=== PATIENT | male | born 1960 | race Caucasian/White ===

== ENCOUNTER 2017-06-02 08:35 | Emergency (ER) | payer OTHER ==
[2017-06-02 08:40] VITALS: BP 138/77; PULSE 70; TEMP 98.8
[2017-06-02 09:00] VITALS: RESP 18
--- NOTE | 2017-06-02 09:06 | ED ---
General Adult HPI - General Chief complaint: Upper Respiratory Infection Stated complaint: body aches, cough Time Seen by Provider: 06/02/17 08:51 Source: patient, RN notes reviewed Mode of arrival: ambulatory Limitations: no limitations - History of Present Illness Initial comments: Patient 56-year-old male presenting to the emergency room today with a chief complaint of cough congestion over the last 2 weeks. Patient states that he's had positive sputum production as been yellow in color. Patient does admit to bodyaches, fevers, chills. Patient states is not taking any medication for this. States does not seem to be getting any better. He does admit to being a daily smoker. Patient denies any recent shortness of breath, chest pain, back pain, abdominal pain, nausea or vomiting, numbness or tingling, headaches or visual changes, or any other complaints. - Related Data Previous Rx's Medication Instructions Recorded Hydrocodone/Acetaminophen [[place] 1 tab PO Q6HR PRN #15 tab 10/29/15 5-325] Eiac-Uqhg-Ymp 6.25-5-10Mg/5Ml 5 ml PO Q4-6H #150 ml 06/02/17 [Phenergan VC with Codeine] Allergies Allergy/AdvReac Type Severity Reaction Status Date / Time No Known Allergies Allergy Verified 06/02/17 08:40 Review of Systems ROS Statement: Those systems with pertinent positive or pertinent negative responses have been documented in the HPI. ROS Other: All systems not noted in ROS Statement are negative. Past Medical History Past Medical History: No Reported History History of Any Multi-Drug Resistant Organisms: None Reported Past Surgical History: No Surgical Hx Reported Past Psychological History: No Psychological Hx Reported Smoking Status: Current every day smoker Past Alcohol Use History: None Reported Past Drug Use History: None Reported General Exam - General Exam Comments Initial Comments: General: The patient is awake and alert, in no distress, and does not appear acutely ill. Eye: Pupils are equal, round and reactive to light, extra-ocular movements are intact. No nystagmus. There is normal conjunctiva bilaterally. No signs of icterus. Ears, nose, mouth and throat: There are moist mucous membranes and no oral lesions. Neck: The neck is supple, there is no tenderness or JVD. Cardiovascular: There is a regular rate and rhythm. No murmur, rub or gallop is appreciated. Respiratory: Lungs are clear to auscultation, respirations are non-labored, breath sounds are equal. No wheezes, stridor, rales, or rhonchi. Musculoskeletal: Normal ROM, no tenderness. Strength 5/5. Sensation intact. Pulses equal bilaterally 2+. Neurological: A&O x 3. CN II-XII intact, There are no obvious motor or sensory deficits. Coordination appears grossly intact. Speech is normal. Skin: Skin is warm and dry and no rashes or lesions are noted. Psychiatric: Cooperative, appropriate mood & affect, normal judgment. Limitations: no limitations Course Vital Signs 06/02/17 06/02/17 08:38 08:59 Temperature 98.8 F Pulse Rate 70 Respiratory 20 18 Rate Blood Pressure 138/77 O2 Sat by Pulse 98 Oximetry Medical Decision Making - Medical Decision Making Patient reexamined at this time shows no signs of distress. Patient's vitals are stable. Patient's influenza be positive. Chest x-ray shows no evidence of pneumonia. They believe they're advised to areas that are consistent with nipple shadowing. This was discussed with the patient is advised to follow up his family physician for repeat x-ray. Patient is outside the window for treatment of Tamiflu at this time. He is requesting something for his cough and body aches stating that he is having a hard time sleeping at night. Patient will be given a prescription for Phenergan and codeine and advised that it may make him drowsy. Patient is advised used Tylenol Motrin for body aches fevers. Otherwise follow-up with his family physician return if symptoms increase worsen or he states her stated and is in agreement. - Lab Data Lab Results 06/02/17 Range/Units 08:50 Influenza Type A RNA Not Detected (Not Detectd) Influenza Type B (PCR) Detected H (Not Detectd) Disposition Clinical Impression: Influenza B Disposition: HOME SELF-CARE Condition: Good Instructions: Influenza (ED) Additional Instructions: Please use medication as discussed. Please follow-up with family doctor in the next 2 days of symptoms have not improved. Please return to emergency room if the symptoms increase or worsen or for any other concerns. Prescriptions: Sxvb-Pjnv-Kkh 6.25-5-10Mg/5Ml [Phenergan VC with Codeine] 5 ml PO Q4-6H #150 ml Referrals: None,Stated [Primary Care Provider] - 1-2 days Bazo,Charbal B, MD [REFERRING] - 1-2 days Keyon Knott DO [STAFF PHYSICIAN] - 1-2 days Time of Disposition: 09:32
--- NOTE | 2017-06-02 09:13 | XR ---
EXAMINATION TYPE: XR chest 2V DATE OF EXAM: 06/02/2017 HISTORY: cough. REFERENCE: NONE. FINDINGS: There are nodular opacities projecting over the mid chest bilaterally. These may represent nipple shadows. This could BE confirmed with repeat examination with nipple markers. The lungs are ot herwise clear. Pleural space are clear. The heart is not enlarged. IMPRESSION: 1. NO ACUTE INTRATHORACIC ABNORMALITY. 2. PROBABLE NIPPLE SHADOWS.
== END 2017-06-02 09:42 | disposition home or self-care (01) ==
LOC: EC 08:35
DX: J10.1 Influenza due to other identified influenza virus with other respiratory manifestations (principal); F17.200 Nicotine dependence, unspecified, uncomplicated
CPT/HCPCS: 71046; 87502; 99283

== ENCOUNTER 2020-06-01 14:23 | Inpatient (IN) | payer OTHER ==
[2020-06-01 17:11] LABS: Basophils # (A) 0.1 k/uL (0-0.2); Basophils % (A) 1 %; Eosinophils % (A) 0 %; HGB 12.9 gm/dL (13.0-17.5); Lymphocytes # (A) 0.4 k/uL (1.0-4.8); Lymphocytes % (A) 3 %; MCH 31.2 pg (25.0-35.0); MCHC 34.9 g/dL (31.0-37.0); MCV 89.1 fL (80.0-100.0); Mean Platelet Volume 7.6; Monocytes # (A) 0.3 k/uL (0-1.0); Monocytes % (A) 3 %; Neutrophils # (A) 11.8 k/uL (1.3-7.7); Neutrophils % (A) 93 %; Platelet Count 194 k/uL (150-450); RBC 4.15 m/uL (4.30-5.90); RDW 12.8 % (11.5-15.5); WBC 12.7 k/uL (3.8-10.6)
--- NOTE | 2020-06-01 17:19 | XR ---
EXAMINATION TYPE: XR chest 2V DATE OF EXAM: 06/01/2020 COMPARISON: 06/02/2017. HISTORY: Fever and altered mental status. TECHNIQUE: Frontal and lateral views of the chest are obtained. FINDINGS: There is diffuse moderate patchy opacities in the right mid to lower lung and mild to mode rate in the left lung base. No pleural effusion, or pneumothorax seen. The cardiac silhouette size i s within normal limits. The osseous structures are intact. IMPRESSION: Bilateral infiltrates.
[2020-06-01] MEDS ORDERED: ACETAMINOPHEN TAB 325 MG TAB PO STA (17:25)
[2020-06-01] MEDS ORDERED: IBUPROFEN 600 MG TAB PO STA (17:25)
[2020-06-01 17:37] LABS: Albumin 3.4 g/dL (3.5-5.0); Calcium 8.5 mg/dL (8.4-10.2); Potassium 4.4 mmol/L (3.5-5.1); Total Bilirubin 1.9 mg/dL (0.2-1.3); Total Protein 6.3 g/dL (6.3-8.2)
--- NOTE | 2020-06-01 17:38 | ED ---
Fever HPI - General Source: patient, RN notes reviewed Mode of arrival: ambulatory Limitations: no limitations <David Lakhani - Last Filed: 06/01/20 19:31> <Genie Sandoval - Last Filed: 06/03/20 12:05> - General Chief Complaint: Fever Stated Complaint: sores on R hand Time Seen by Provider: 06/01/20 17:25 - History of Present Illness Initial Comments: Patient is a 59-year-old male that presents to the emergency department complaining of fever with cough for the last several days. He did note that he smokes approximately half pack to a pack cigarettes a day but has not since he has a cough. He denied any other health history or issues. Son over the phone noted that patient does have a severe heroin addiction and thinks that he might have high blood pressure. Patient was then with bony prominences showing but well while sitting up in bed during the exam and interview. He denied any shortness of breath chest pain headache nausea vomiting diarrhea constipation (David Lakhani) - Related Data Home Medications Medication Instructions Recorded Confirmed No Known Home Medications 06/01/20 06/01/20 Allergies Allergy/AdvReac Type Severity Reaction Status Date / Time No Known Allergies Allergy Verified 06/01/20 19:50 Review of Systems ROS Other: All systems not noted in ROS Statement are negative. <David Lakhani - Last Filed: 06/01/20 19:31> ROS Other: All systems not noted in ROS Statement are negative. <Genie Sandoval - Last Filed: 06/03/20 12:05> ROS Statement: Those systems with pertinent positive or pertinent negative responses have been documented in the HPI. Past Medical History Past Medical History: No Reported History History of Any Multi-Drug Resistant Organisms: None Reported Past Surgical History: No Surgical Hx Reported Past Psychological History: Anxiety Smoking Status: Current every day smoker Past Alcohol Use History: None Reported Past Drug Use History: None Reported <David Lakhani - Last Filed: 06/01/20 19:31> General Exam Limitations: no limitations General appearance: alert, in no apparent distress, other (Patient is thin with bony prominence showing in his shoulders and clavicles, on With Sores on His Hands That He Picks at.) Head exam: Present: atraumatic, normocephalic, normal inspection Eye exam: Present: normal appearance, PERRL, EOMI. Absent: scleral icterus, conjunctival injection, periorbital swelling Neck exam: Present: normal inspection. Absent: tenderness, meningismus, ly mphadenopathy Respiratory exam: Present: decreased breath sounds. Absent: respiratory distress, wheezes, rales, rhonchi, stridor Cardiovascular Exam: Present: regular rate, normal rhythm, normal heart sounds. Absent: systolic murmur, diastolic murmur, rubs, gallop, clicks GI/Abdominal exam: Present: soft, normal bowel sounds. Absent: distended, tenderness, guarding, rebound, rigid Extremities exam: Present: normal inspection, full ROM, normal capillary refill. Absent: tenderness, pedal edema, joint swelling, calf tenderness Back exam: Present: normal inspection Neurological exam: Present: alert, oriented X3, CN II-XII intact Psychiatric exam: Present: normal affect, normal mood Skin exam: Present: warm, dry, intact, normal color. Absent: rash <David Lakhani - Last Filed: 06/01/20 19:31> Course Vital Signs 06/01/20 06/01/20 06/01/20 16:10 17:47 17:57 Temperature 100.4 F H 101 F H Pulse Rate 117 H 100 Respiratory 19 22 Rate Blood Pressure 105/62 119/64 O2 Sat by Pulse 92 L 87 L 92 L Oximetry 06/01/20 06/01/20 06/02/20 19:35 22:18 00:14 Temperature 97.9 F Pulse Rate 87 53 L 61 Respiratory 18 18 18 Rate Blood Pressure 113/78 91/59 103/59 O2 Sat by Pulse 92 L 95 97 Oximetry 06/02/20 02:22 Temperature Pulse Rate 65 Respiratory 20 Rate Blood Pressure 143/91 O2 Sat by Pulse 93 L Oximetry Medical Decision Making - Lab Data Result diagrams: 06/01/20 16:55 06/01/20 16:55 - Radiology Data Radiology results: report reviewed, image reviewed <David Lakhani - Last Filed: 06/01/20 19:31> - Lab Data Result diagrams: 06/03/20 06:30 06/03/20 06:30 <Genie Sandoval - Last Filed: 06/03/20 12:05> - Medical Decision Making 59-year-old male complaining of fever for the past several days with a cough. Labs, chest x-ray, Covid test, 650 mg of Tylenol and 600 mg of Motrin ordered. Recheck oxygen saturation, 2 L of oxygen via nasal cannula ordered if needed. Oxygen saturation room air 87, 2 L via nasal cannula put on. Labs: White blood cells 12.7, sodium 127 chloride 85 BUN 46, total bilirubin 1.9, AST 1033, ALT 189, alk phos 140, Covid test positive Case discussed with Dr. Sandoval, patient will be admitted. Consult to Dr. Gonzalez and he will accept the admission. (David Lakhani) I was available for consultation in the emergency department. The history and physical exam were done by the midlevel provider. I was consulted for this patients care. I reviewed the case with the midlevel provider and based on their presentation of the patient, I agree with the assessment, medical decision making and plan of care as documented. Chart was dictated using Snipd dictation software. Attempts were made to correct any dictation errors however some typographical errors may persist. Patient was seen during a national state of emergency due to the Covid-19 pandemic. (Genie Sandoval) - Lab Data Lab Results 06/01/20 06/01/20 06/01/20 Range/Units 16:20 16:55 16:55 WBC 12.7 H (3.8-10.6) k/uL RBC 4.15 L (4.30-5.90) m/uL Hgb 12.9 L (13.0-17.5) gm/dL Hct 37.0 L (39.0-53.0) % MCV 89.1 (80.0-100.0) fL MCH 31.2 (25.0-35.0) pg MCHC 34.9 (31.0-37.0) g/dL RDW 12.8 (11.5-15.5) % Plt Count 194 (150-450) k/uL MPV 7.6 Neutrophils % 93 % Lymphocytes % 3 % Monocytes % 3 % Eosinophils % 0 % Basophils % 1 % Neutrophils # 11.8 H (1.3-7.7) k/uL Lymphocytes # 0.4 L (1.0-4.8) k/uL Monocytes # 0.3 (0-1.0) k/uL Eosinophils # 0.0 (0-0.7) k/uL Basophils # 0.1 (0-0.2) k/uL Sodium 127 L (137-145) mmol/L Potassium 4.4 (3.5-5.1) mmol/L Chloride 85 L (98-107) mmol/L Carbon Dioxide 32 H (22-30) mmol/L Anion Gap 10 mmol/L BUN 46 H (9-20) mg/dL Creatinine 1.23 (0.66-1.25) mg/dL Est GFR (CKD-EPI)AfAm 74 (>60 ml/min/1.73 sqM) Est GFR (CKD-EPI)NonAf 64 (>60 ml/min/1.73 sqM) Glucose 128 H (74-99) mg/dL Plasma Lactic Acid Karthik (0.7-2.0) mmol/L Calcium 8.5 (8.4-10.2) mg/dL Total Bilirubin 1.9 H (0.2-1.3) mg/dL AST 1033 H (17-59) U/L ALT 189 H (4-49) U/L Alkaline Phosphatase 140 H (38-126) U/L Total Protein 6.3 (6.3-8.2) g/dL Albumin 3.4 L (3.5-5.0) g/dL Urine Color Urine Appearance (Clear) Urine pH (5.0-8.0) Ur Specific [place] (1.001-1.035) Urine Protein (Negative) Urine Glucose (UA) (Negative) Urine Ketones (Negative) Urine Blood (Negative) Urine Nitrite (Negative) Urine Bilirubin (Negative) Urine Urobilinogen (<2.0) mg/dL Ur Leukocyte Esterase (Negative) Urine RBC (0-5) /hpf Urine WBC (0-5) /hpf Ur Squamous Epith Cells (0-4) /hpf Hyaline Casts (0-2) /lpf Granular Casts (0) /lpf Urine Mucus (None) /hpf Coronavirus (PCR) Detected A (Not Detectd) Hepatitis A IgM Ab (Non-Reactive) Hep Bs Antigen (Non-Reactive) Hep B Core IgM Ab (Non-Reactive) Hep C IgG Ab (Non-Reactive) 04/07/21 04/07/21 04/07/21 Range/Units 16:55 17:47 19:11 WBC (3.8-10.6) k/uL RBC (4.30-5.90) m/uL Hgb (13.0-17.5) gm/dL Hct (39.0-53.0) % MCV (80.0-100.0) fL MCH (25.0-35.0) pg MCHC (31.0-37.0) g/dL RDW (11.5-15.5) % Plt Count (150-450) k/uL MPV Neutrophils % % Lymphocytes % % Monocytes % % Eosinophils % % Basophils % % Neutrophils # (1.3-7.7) k/uL Lymphocytes # (1.0-4.8) k/uL Monocytes # (0-1.0) k/uL Eosinophils # (0-0.7) k/uL Basophils # (0-0.2) k/uL Sodium (137-145) mmol/L Potassium (3.5-5.1) mmol/L Chloride (98-107) mmol/L Carbon Dioxide (22-30) mmol/L Anion Gap mmol/L BUN (9-20) mg/dL Creatinine (0.66-1.25) mg/dL Est GFR (CKD-EPI)AfAm (>60 ml/min/1.73 sqM) Est GFR (CKD-EPI)NonAf (>60 ml/min/1.73 sqM) Glucose (74-99) mg/dL Plasma Lactic Acid Karthik 1.6 (0.7-2.0) mmol/L Calcium (8.4-10.2) mg/dL Total Bilirubin (0.2-1.3) mg/dL AST (17-59) U/L ALT (4-49) U/L Alkaline Phosphatase (38-126) U/L Total Protein (6.3-8.2) g/dL Albumin (3.5-5.0) g/dL Urine Color Yellow Urine Appearance Cloudy (Clear) Urine pH 6.0 (5.0-8.0) Ur Specific [place] 1.017 (1.001-1.035) Urine Protein 2+ H (Negative) Urine Glucose (UA) Negative (Negative) Urine Ketones Negative (Negative) Urine Blood Moderate H (Negative) Urine Nitrite Negative (Negative) Urine Bilirubin 1+ H (Negative) Urine Urobilinogen 3.0 (<2.0) mg/dL Ur Leukocyte Esterase Negative (Negative) Urine RBC 1 (0-5) /hpf Urine WBC 5 (0-5) /hpf Ur Squamous Epith Cells 1 (0-4) /hpf Hyaline Casts 4 H (0-2) /lpf Granular Casts 3 (0) /lpf Urine Mucus Rare H (None) /hpf Coronavirus (PCR) (Not Detectd) Hepatitis A IgM Ab Non-Reactive (Non-Reactive) Hep Bs Antigen Non-Reactive (Non-Reactive) Hep B Core IgM Ab Non-Reactive (Non-Reactive) Hep C IgG Ab Non-Reactive (Non-Reactive) - Radiology Data Chest x-ray: There is diffuse moderate patchy opacities in the right mid to lower lung in mild to moderate in the left lung base. No pleural effusion or pneumothorax seen. The cardiac silhouette is within normal limits. Osseous structures are intact. (David Lakhani) Disposition Is patient prescribed a controlled substance at d/c from ED?: No Time of Disposition: 19:32 <David Lakhani - Last Filed: 06/01/20 19:31> <Genie Sandoval - Last Filed: 06/03/20 12:05> Clinical Impression: COVID-19, Hypoxia Disposition: ADMITTED IP TO THIS HOSP Condition: Serious
[2020-06-01] MEDS ORDERED: SODIUM CHLORIDE 0.9% 1,000 ML IV STA (18:08)
[2020-06-01 18:10] LABS: Appearance,Urine Cloudy (Clear); Bilirubin,Urine 1+ (Negative); Blood,Urine Moderate (Negative); Color,Urine Yellow; Glucose,Urine (UA) Negative (Negative); Granular Casts,Urine 3 /lpf (0); Hyaline Casts,Urine 4 /lpf (0-2); Ketones,Urine Negative (Negative); Leukocyte Esterase,Urine Negative (Negative); Mucus,Urine Rare /hpf; Nitrite,Urine Negative (Negative); Protein,Urine 2+ (Negative); RBC,Urine 1 /hpf (0-5); Specific Gravity,Urine 1.017 (1.001-1.035); Squamous Epithelial Cell,Urine 1 /hpf (0-4); WBC,Urine 5 /hpf (0-5)
[2020-06-01] MEDS ORDERED: NALOXONE 0.4 MG/ML 1 ML VIAL IV PRN (19:28)
[2020-06-01] MEDS: SODIUM CHLORIDE 0.9% 1,000 ML IV SCH (19:34)
--- NOTE | 2020-06-01 22:20 | P.HPIM ---
History of Present Illness H&P Date: 06/01/20 Chief Complaint: Generalized body aches, malaise 59-year-old male with no significant past medical history Patient seems to have poor insight regarding his general health. He provides very limited history Patient's son informed the ED doctor that his father is a severe heroin addict which the patient is denying. Patient comes in complaining of generalized malaise and fatigue and body aches. He claims that this been progressively getting worse over the past couple mo nths. He denies any fevers or chills denies any coughing denies any sore throat denies any sick contacts, he denies any abdominal pain nausea vomiting or diarrhea. When asked regarding shortness of breath he said yes but he doesn't give me any details whether it's exertional or during rest he just avoid answering the question. Patient looks disheveled wearing dirty clothes and when asked if he was working on something before he came he again did not get a clear answer. He claims to be active he walks his dog 15 times a day and he plays with his grandsons who are very active. Other than that patient doesn't give any further history he keeps complaining about dry mouth and asking for water. He currently feels comfortable he's on nasal cannula denies any other complaints. Again he denies any abdominal pain nausea vomiting diarrhea or GI bleeds. He denies any IV drug use. Workup in the ED showed elevated white count, elevated liver enzymes, positive Covid. In the ED he was hypoxic on room air down to 87% which improved with 2-3 L nasal cannula up to 92%. Chest x-ray showed diffuse patchy infiltrate bilaterally Again patient denies any drug abuse, he admits to tobacco smoking, he denies any alcohol on regular basis. Review of Systems Pertinent positives as noted in HPI. All other systems were reviewed and are negative Past Medical History Past Medical History: No Reported History Additional Past Medical History / Comment(s): Patient's son reported that his father uses heroin on regular basis History of Any Multi-Drug Resistant Organisms: None Reported Past Surgical History: No Surgical Hx Reported Past Psychological History: Anxiety Smoking Status: Current every day smoker Past Alcohol Use History: None Reported Past Drug Use History: None Reported - Past Family History Family Family Medical History: No Reported History Medications and Allergies Home Medications Medication Instructions Recorded Confirmed Type No Known Home Medications 06/01/20 06/01/20 History Allergies Allergy/AdvReac Type Severity Reaction Status Date / Time No Known Allergies Allergy Verified 06/01/20 19:50 Physical Exam Vitals: Vital Signs Temp Pulse Resp BP Pulse Ox 06/01/20 17:57 92 L 06/01/20 17:47 101 F H 100 22 119/64 87 L 06/01/20 16:10 100.4 F H 117 H 19 105/62 92 L Intake and Output 06/01/20 06/01/20 06/01/20 06:59 14:59 22:59 Other: Weight 70.307 kg Constitutional: No acute distress, conversant, pleasant, patient looks disheveled, older than stated age Eyes: Anicteric sclerae, moist conjunctiva, Pupils equal round reactive to light ENMT: NC/AT Oropharynx clear, no erythema, or exudates Neck: Supple, FROM, no masses, or JVD No carotid bruits No thyromegaly Lungs: Clear to auscultation Clear to percussion Normal respiratory effort, no accessory muscle use Cardiovascular: Heart regular in rate and rhythm, No murmurs, gallops, or rubs No peripheral edema Abdominal: Soft Nontender, no guarding, rebound or rigidity Abdomen moving with respiration Normoactive bowel sounds No hepatomegaly, No splenomegaly No palpable mass No abdominal wall hernia noted Skin: Patient has multiple lesions small in size about 1 cm diameter of different stages over bilateral hands patient claims that he has some kind of ALLERGY causes a lot of itching over his hands resulting in blisters which breaks into these ulcers, otherwise Normal temperature, tone, texture, turgor These ulcers are not draining at this time, no surrounding erythema or induration no tenderness to the touch Extremities: No digital cyanosis No clubbing Pedal pulses intact and symmetrical Radial pulses intact and symmetrical No calf tenderness Psychiatric: Alert and oriented to person, place Appropriate affect fair judgement Neuro Muscles Strength 5/5 in all 4 extremities Sensation to light touch grossly present throughout Cranial nerves II-XII grossly intact No focal sensory deficits Lymphatics: no palpable cervical or supraclavicular , or inguinal lymph nodes Results CBC & Chem 7: 06/01/20 16:55 06/01/20 16:55 Labs: Abnormal Lab Results - Last 24 Hours (Table) 06/01/20 06/01/20 06/01/20 Range/Units 16:20 16:55 16:55 WBC 12.7 H (3.8-10.6) k/uL RBC 4.15 L (4.30-5.90) m/uL Hgb 12.9 L (13.0-17.5) gm/dL Hct 37.0 L (39.0-53.0) % Neutrophils # 11.8 H (1.3-7.7) k/uL Lymphocytes # 0.4 L (1.0-4.8) k/uL Sodium 127 L (137-145) mmol/L Chloride 85 L (98-107) mmol/L Carbon Dioxide 32 H (22-30) mmol/L BUN 46 H (9-20) mg/dL Glucose 128 H (74-99) mg/dL Total Bilirubin 1.9 H (0.2-1.3) mg/dL AST 1033 H (17-59) U/L ALT 189 H (4-49) U/L Alkaline Phosphatase 140 H (38-126) U/L Albumin 3.4 L (3.5-5.0) g/dL Urine Protein (Negative) Urine Blood (Negative) Urine Bilirubin (Negative) Hyaline Casts (0-2) /lpf Urine Mucus (None) /hpf Coronavirus (PCR) Detected A (Not Detectd) 06/01/20 Range/Units 17:47 WBC (3.8-10.6) k/uL RBC (4.30-5.90) m/uL Hgb (13.0-17.5) gm/dL Hct (39.0-53.0) % Neutrophils # (1.3-7.7) k/uL Lymphocytes # (1.0-4.8) k/uL Sodium (137-145) mmol/L Chloride (98-107) mmol/L Carbon Dioxide (22-30) mmol/L BUN (9-20) mg/dL Glucose (74-99) mg/dL Total Bilirubin (0.2-1.3) mg/dL AST (17-59) U/L ALT (4-49) U/L Alkaline Phosphatase (38-126) U/L Albumin (3.5-5.0) g/dL Urine Protein 2+ H (Negative) Urine Blood Moderate H (Negative) Urine Bilirubin 1+ H (Negative) Hyaline Casts 4 H (0-2) /lpf Urine Mucus Rare H (None) /hpf Coronavirus (PCR) (Not Detectd) Assessment and Plan Assessment: Acute hypoxic respiratory failure Covid pneumonitis Plan Supportive care Supplemental oxygen as needed Patient started on Decadron Lovenox subcu daily Check inflammatory markers d-dimer, ferritin, LDH, CRP Droplet and contact precautions Elevated liver enzymes Plan Check abdominal ultrasound Check acetaminophen levels Check hepatitis panel Avoid hepatotoxic medications Trend liver enzymes Hyponatremia with component of dehydration Close monitoring of sodium level Normal saline IV fluid hydration Monitor urine output Monitor renal function Possible polysubstance abuse which patient is denying Check urine drug screen CODE STATUS: Full code DVT prophylaxis: Lovenox subcu Discussed with: Patient, ER Anticipated length of stay more than [address]: Home A total of 70 minutes was spent on the care of this complex patient more than 50% of the time was spent in counseling and care coordination.
[2020-06-01] MEDS: DEXAMETHASONE SOD PHOSPHATE 10 MG/ML 1 ML VIAL IV SCH (22:26)
[2020-06-01 23:20] LABS: Amphetamine Screen,Urine Not Detected (NotDetected); Barbiturate Screen,Urine Not Detected (NotDetected); Benzodiazepines Screen,Urine Not Detected (NotDetected); Cocaine Screen,Urine Not Detected (NotDetected); Methadone Screen, Urine Not Detected (NotDetected); Opiate Screen,Urine Not Detected (NotDetected); Oxycodone Screen, Urine Not Detected (NotDetected); Phencyclidine Screen,Urine Not Detected (NotDetected); Tricyclic Antidepressant,Urine Not Detected (NotDetected); Urn Cannabinoid Scrn Not Detected (NotDetected)
[2020-06-01 23:33] LABS: INR 1.2 (<1.2); Partial Thromboplastin Time 36.7 sec (22.0-30.0); Prothrombin Time 12.4 sec (9.0-12.0)
[2020-06-01 23:39] LABS: Acetaminophen <10.0 ug/mL; LDH 730 U/L (313-618)
[2020-06-01 23:51] LABS: C Reactive Protein 168.5 mg/L (<10.0)
[2020-06-02] MEDS: ENOXAPARIN 40 MG/0.4 ML SYRINGE SQ SCH ×2 (02:34→21:26)
--- NOTE | 2020-06-02 07:40 | US ---
EXAMINATION TYPE: US abdomen limited DATE OF EXAM: 06/02/2020 COMPARISON: NONE CLINICAL HISTORY: elevated liver enzymes. abn labs, no abd pain, Covid pt. EXAM MEASUREMENTS: Liver Length: 17.5 cm Gallbladder Wall: 0.2 cm CBD: 0.6 cm Right Kidney: 11.3 x 5.4 x 4.6 cm Pancreas: wnl Liver: wnl Gallbladder: mobile sludge seen with single comet tail artifact at fundus, probable adenomyomatosis Evidence for sonographic Eason's sign: no CBD: wnl Right Kidney: wnl IMPRESSION: Gallbladder sludge noted. Probable adenomyomatosis noted as well.
--- NOTE | 2020-06-02 08:31 | P.PN ---
Subjective Progress Note Date: 06/02/20 Patient feels okay, denies chest pain. No abdominal pain, no nausea or vomiting. Patient remains afebrile. Objective - Vital Signs Vital signs: Vital Signs Temp 97.9 F 06/01/20 22:18 Pulse 51 L 06/02/20 05:47 Resp 18 06/02/20 05:47 BP 100/59 06/02/20 05:47 Pulse Ox 93 L 06/02/20 05:47 Intake & Output 06/01/20 06/02/20 06/02/20 18:59 06:59 18:59 Weight 70.307 kg 70.307 kg Other: # Voids 1 - Exam Constitutional: No acute distress, conversant, pleasant Eyes: Anicteric sclerae, moist conjunctiva ENMT: NC/AT,Oropharynx clear Neck:Supple, FROM, no masses Lungs: Clear to auscultation, Normal respiratory effort, no accessory muscle use , decreased BS Cardiovascular: Heart regular in rate and rhythm, No murmurs, gallops, or rubs no peripheral edema Abdominal: Soft Nontender, nom distended, no guarding, no rebound or rigidity, Normoactive bowel sounds No hepatomegaly, No splenomegaly, No palpable mass No abdominal wall hernia noted Skin: Normal temperature Extremities:No digital cyanosis No clubbing Psychiatric: Alert and oriented to person, place and time Neuro: Muscles Strength 5/5 in all 4 extremities, Sensation to light touch grossly present throughout, Cranial nerves II-XII grossly intact. - Labs CBC & Chem 7: 06/01/20 16:55 06/01/20 16:55 Labs: Abnormal Lab Results - Last 24 Hours (Table) 06/01/20 06/01/20 06/01/20 Range/Units 16:20 16:55 16:55 WBC 12.7 H (3.8-10.6) k/uL RBC 4.15 L (4.30-5.90) m/uL Hgb 12.9 L (13.0-17.5) gm/dL Hct 37.0 L (39.0-53.0) % Neutrophils # 11.8 H (1.3-7.7) k/uL Lymphocytes # 0.4 L (1.0-4.8) k/uL PT (9.0-12.0) sec INR (<1.2) APTT (22.0-30.0) sec Sodium 127 L (137-145) mmol/L Chloride 85 L (98-107) mmol/L Carbon Dioxide 32 H (22-30) mmol/L BUN 46 H (9-20) mg/dL Glucose 128 H (74-99) mg/dL Total Bilirubin 1.9 H (0.2-1.3) mg/dL AST 1033 H (17-59) U/L ALT 189 H (4-49) U/L Alkaline Phosphatase 140 H (38-126) U/L Lactate Dehydrogenase (313-618) U/L C-Reactive Protein (<10.0) mg/L Albumin 3.4 L (3.5-5.0) g/dL Lipase (23-300) U/L Urine Protein (Negative) Urine Blood (Negative) Urine Bilirubin (Negative) Hyaline Casts (0-2) /lpf Urine Mucus (None) /hpf U Methamphetamines Scrn (NotDetected) Coronavirus (PCR) Detected A (Not Detectd) 06/01/20 06/01/20 06/01/20 Range/Units 17:47 22:07 22:07 WBC (3.8-10.6) k/uL RBC (4.30-5.90) m/uL Hgb (13.0-17.5) gm/dL Hct (39.0-53.0) % Neutrophils # (1.3-7.7) k/uL Lymphocytes # (1.0-4.8) k/uL PT 12.4 H (9.0-12.0) sec INR 1.2 H (<1.2) APTT 36.7 H (22.0-30.0) sec Sodium (137-145) mmol/L Chloride (98-107) mmol/L Carbon Dioxide (22-30) mmol/L BUN (9-20) mg/dL Glucose (74-99) mg/dL Total Bilirubin (0.2-1.3) mg/dL AST (17-59) U/L ALT (4-49) U/L Alkaline Phosphatase (38-126) U/L Lactate Dehydrogenase 730 H (313-618) U/L C-Reactive Protein 168.5 H (<10.0) mg/L Albumin (3.5-5.0) g/dL Lipase (23-300) U/L Urine Protein 2+ H (Negative) Urine Blood Moderate H (Negative) Urine Bilirubin 1+ H (Negative) Hyaline Casts 4 H (0-2) /lpf Urine Mucus Rare H (None) /hpf U Methamphetamines Scrn (NotDetected) Coronavirus (PCR) (Not Detectd) 06/01/20 06/01/20 Range/Units 22:13 22:13 WBC (3.8-10.6) k/uL RBC (4.30-5.90) m/uL Hgb (13.0-17.5) gm/dL Hct (39.0-53.0) % Neutrophils # (1.3-7.7) k/uL Lymphocytes # (1.0-4.8) k/uL PT (9.0-12.0) sec INR (<1.2) APTT (22.0-30.0) sec Sodium (137-145) mmol/L Chloride (98-107) mmol/L Carbon Dioxide (22-30) mmol/L BUN (9-20) mg/dL Glucose (74-99) mg/dL Total Bilirubin (0.2-1.3) mg/dL AST (17-59) U/L ALT (4-49) U/L Alkaline Phosphatase (38-126) U/L Lactate Dehydrogenase (313-618) U/L C-Reactive Protein (<10.0) mg/L Albumin (3.5-5.0) g/dL Lipase <10 L (23-300) U/L Urine Protein (Negative) Urine Blood (Negative) Urine Bilirubin (Negative) Hyaline Casts (0-2) /lpf Urine Mucus (None) /hpf U Methamphetamines Scrn Detected H (NotDetected) Coronavirus (PCR) (Not Detectd) Assessment and Plan Plan: Acute hypoxic respiratory failure with Covid pneumonitis : Supplemental oxygen as needed continue Decadron Lovenox subcu daily Droplet and contact precautions Elevated liver enzymes likely associated with covert 19 Plan abdominal ultrasound , gallbladder sludge with 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
[2020-06-02] MEDS: SODIUM CHLORIDE 0.9% 1,000 ML IV SCH ×2 (09:09→21:33)
[2020-06-02] MEDS: DEXAMETHASONE SOD PHOSPHATE 10 MG/ML 1 ML VIAL IV SCH (09:09)
[2020-06-02 10:28] LABS: Ferritin 1026.4 ng/mL (22.0-322.0)
[2020-06-02 12:08] LABS: Hepatitis A Antibody IgM Non-Reactive (Non-Reactive); Hepatitis B Core IgM Non-Reactive (Non-Reactive); Hepatitis B Surface Antigen Non-Reactive (Non-Reactive); Hepatitis C IgG Antibody Non-Reactive (Non-Reactive)
[2020-06-03] MEDS ORDERED: HYDROcodone/APAP 5-325MG 1 EACH TAB PO STA (03:53)
[2020-06-03] MEDS ORDERED: ACETAMINOPHEN TAB 325 MG TAB PO PRN (03:55)
[2020-06-03 07:08] LABS: ALT 140 U/L (4-49); AST 413 U/L (17-59); African American GFR (CKD) >90 (>60 ml/min/1.73 sqM); Alkaline Phosphatase 165 U/L (38-126); Anion Gap 6 mmol/L; Blood Urea Nitrogen 37 mg/dL (9-20); Calcium 8.6 mg/dL (8.4-10.2); Carbon Dioxide 31 mmol/L (22-30); Chloride 97 mmol/L (98-107); Glucose 127 mg/dL (74-99); Non-African American GFR(CKD) >90 (>60 ml/min/1.73 sqM); Potassium 4.6 mmol/L (3.5-5.1); Sodium 134 mmol/L (137-145); Total Bilirubin 2.4 mg/dL (0.2-1.3); Total Protein 5.9 g/dL (6.3-8.2)
[2020-06-03 07:49] VITALS: BP 116/63; PULSE 88; RESP 17; TEMP 97.5
[2020-06-03 08:06] LABS: HCT 43.7 % (39.0-53.0); HGB 14.3 gm/dL (13.0-17.5); MCH 29.8 pg (25.0-35.0); MCHC 32.6 g/dL (31.0-37.0); MCV 91.3 fL (80.0-100.0); Mean Platelet Volume 9.1; Platelet Count 176 k/uL (150-450); RBC 4.79 m/uL (4.30-5.90); RDW 13.7 % (11.5-15.5); WBC 7.4 k/uL (3.8-10.6)
[2020-06-03] MEDS: DEXAMETHASONE SOD PHOSPHATE 10 MG/ML 1 ML VIAL IV SCH (08:08)
[2020-06-03] MEDS ORDERED: HYDROcodone/APAP 5-325MG 1 EACH TAB PO PRN (08:23)
[2020-06-03] MEDS ORDERED: cloNIDine HCL 0.1 MG TAB PO PRN (08:23)
--- NOTE | 2020-06-03 09:36 | P.PN ---
Subjective Progress Note Date: 06/03/20 Patient was complaining of a lot of cough today and write. Pain secondary to cough. He appears to be having symptoms of opiate withdrawal. He admits to using heroin and reports last use was a week ago. Is currently on 2 L of oxygen satting 93%. When I took him off of the oxygen his O2 sat dropped to the low 80s. He denies any shortness of breath otherwise. He feels that he is only short of breath and requiring oxygen because of being in the hospital. Objective - Vital Signs Vital signs: Vital Signs Temp 97.5 F L 06/03/20 07:47 Pulse 88 06/03/20 07:47 Resp 17 06/03/20 07:47 BP 116/63 06/03/20 07:47 Pulse Ox 97 06/03/20 09:01 Intake & Output 06/02/20 06/03/20 06/03/20 18:59 06:59 18:59 Intake Total 1375 Balance 1375 Intake: Intake, IV Titration 825 Amount Sodium Chloride 0.9% 1, 825 000 ml @ 75 mls/hr IV . [id number] [facility] Rx#:[id number] Oral 550 Other: Voiding Method Urinal # Voids 2 - Exam General: The patient is awake and alert, in no distress Eye: there is normal conjunctiva bilaterally. Neck: The neck is supple, there is no JVD. Cardiovascular: Normal S1-S2, no S3-S4, no murmurs. Respiratory: Lungs clear to auscultation bilaterally Gastrointestinal: Abdomen is soft, nontender Musculoskeletal: There is no pedal edema. Neurological:. Speech is normal. Skin: Skin is warm and dry - Labs CBC & Chem 7: 06/03/20 06:30 06/03/20 06:30 Labs: Abnormal Lab Results - Last 24 Hours (Table) 06/01/20 06/01/20 06/03/20 Range/Units 22:07 22:20 06:30 Sodium 134 L (137-145) mmol/L Chloride 97 L (98-107) mmol/L Carbon Dioxide 31 H (22-30) mmol/L BUN 37 H (9-20) mg/dL Glucose 127 H (74-99) mg/dL Ferritin 1026.4 H (22.0-322.0) ng/mL Total Bilirubin 2.4 H (0.2-1.3) mg/dL AST 413 H (17-59) U/L ALT 140 H (4-49) U/L Alkaline Phosphatase 165 H (38-126) U/L Total Protein 5.9 L (6.3-8.2) g/dL Albumin 3.0 L (3.5-5.0) g/dL Procalcitonin 14.42 H (0.02-0.09) ng/mL Assessment and Plan Assessment: This is a 59-year-old male with past medical history noted below who presented to the emergency room with generalized fatigue and body aches. Patient was evaluated in the ER and placed on observation for further management of his medical problems noted below. 1. COVID-19 pneumonitis 2. Acute hypoxic respiratory failure 3. 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 Transaminitis: Probably secondary to viral illness. Acute hepatitis panel is negative. Liver enzymes improving. Continue to avoid hepatotoxic medica tions 5. Hypovolemic hyponatremia: Improved significantly with IV fluid 6. Polysubstance abuse Patient was treated with supportive care, IV fluids, and IV Decadron. Patient was persistent about leaving the hospital today. I had a prolonged discussion with him and his nurse at bedside. I explained to him that leaving the hospital record with him at the great risk of deteriorating health condition and possibly or cardiac arrest. Patient verbalized understanding of the risks of leaving AMA. He clearly has capacity of making medical decisions. We also discussed the possibility of him having evidence of withdrawal and I informed him that clonidine is been already ordered to help with withdrawal symptoms. Patient was adamant about leaving and said that he is not needing to use drugs and said he just wanted to be at home and feels better. He would sign AMA form and is the hospital.
--- NOTE | 2020-06-03 09:37 | P.DS ---
Providers Date of admission: 06/01/20 20:44 Expected date of discharge: 06/03/20 Attending physician: Dashawn Cline MD Primary care physician: Stated None Hospital Course: Patient left the hospital AMA For further details about this hospitalization please refer to the electronic chart Patient Condition at Discharge: Stable Plan - Discharge Summary Discharge Rx Participant: No New Discharge Prescriptions: No Action No Known Home Medications Discharge Medication List No Known Home Medications 06/01/20 [History] Follow up Appointment(s)/Referral(s): None,Stated [Primary Care Provider] - 1-2 days
[2020-06-03 12:15] LABS: Band Neutrophils % 4 %; Lymphocytes # (M) 0.15 k/uL (1.0-4.8); Monocytes # (M) 0.07 k/uL (0-1.0); Neutrophils % (M) 94 %; Nucleated Red Blood Cells 0 /100 WBC (0-0); Total Cells Counted 200; Toxic Granulation Present
[2020-06-03 12:16] LABS: Anisocytosis (M) Present; Poikilocytosis (M) Present
== END 2020-06-03 09:15 | disposition left against medical advice (07) | DRG 177 ==
LOC: EC 14:23 → 4SSUR 20:44 → 1SOBS 06-02 02:29
PROVIDERS: ADMIT Internal Medicine; ATTEND Internal Medicine
PROC: 3E0333Z Introduction of Anti-inflammatory into Peripheral Vein, Percutaneous Approach (ICD-10-PCS; principal; 2020-06-01)
DX: U07.1 COVID-19 (principal); J96.01 Acute respiratory failure with hypoxia; J12.82 Pneumonia due to coronavirus disease 2019; E87.1 Hypo-osmolality and hyponatremia; F11.23 Opioid dependence with withdrawal; E86.0 Dehydration; F17.200 Nicotine dependence, unspecified, uncomplicated; F41.9 Anxiety disorder, unspecified; R74.01 Elevation of levels of liver transaminase levels; F15.90 Other stimulant use, unspecified, uncomplicated; F19.10 Other psychoactive substance abuse, uncomplicated
CPT/HCPCS: 36415; 71046; 76705; 80053; 80074; 80143; 80306; 81001; 82728; 83605; 83615; 83690; 84145; 85025; 85610; 85730; 86140; 87635; 99284